=== PATIENT | male | born 1940 | race Caucasian/White ===

== ENCOUNTER 2023-04-05 15:29 | Inpatient (IN) | payer MEDICARE, OTHER ==
[2023-04-05] MEDS ORDERED: Ketorolac Tromethamine 30 MG/ML VIAL ONE (15:56)
[2023-04-05 16:29] LABS: #Eosinphils 0.1 thou/uL (0.0-0.7); #Monocytes 0.5 thou/uL (0.11-0.59); #Neutrophils 5.2 thou/uL (1.40-6.50); %Basophils 0.4 % (0.0-1.0); %Eosinophils 1.6 % (0.0-10.0); %Lymphocytes 19.4 % (21.0-51.0); %Monocytes 6.7 % (0.0-10.0); %Neutrophils 71.2 % (42.0-75.0); Hematocrit 35.3 % (42.0-52.0); Hemoglobin 11.7 g/dL (14.0-18.0); Mean Corpuscular HGB CONC 33.1 g/dL (32.0-36.0); Mean Corpuscular Hemoglobin 32.3 pg (27.0-31.0); Mean Corpuscular Volume 97.5 fl (78.0-98.0); Mean Platelet Volume 11.1 fL (7.4-10.4); Platelet Count 156 10x3/uL (130-400); RBC Distribution Width 12.9 % (11.5-14.5); Red Blood Cell (RBC) Count 3.62 mill/uL (4.70-6.10); White Blood Cell (WBC) Count 7.3 10x3/uL (4.8-10.8)
[2023-04-05 16:43] LABS: PTT 31.2 sec (22.9-36.1); Prothrombin Time 13.7 sec (12.0-14.7)
[2023-04-05 16:56] LABS: ALT (SGPT) 15 U/L (8-55); AST (SGOT) 19 U/L (5-34); Albumin 4.5 g/dL (3.4-4.8); Alkaline Phosphatase 84 U/L (40-110); Anion Gap 16 mmol/L (10-20); BUN (Urea Nitrogen) 25 mg/dL (8.4-25.7); Bilirubin, Total 0.5 mg/dL (0.2-1.2); Calc. Creatinine Clearance 0 mL/min (70-130); Calcium 10.3 mg/dL (7.8-10.44); Carbon Dioxide 19 mmol/L (23-31); Chloride 109 mmol/L (98-107); Estimated GFR 38; Globulin 2.7 g/dL (2.4-3.5); Glucose 157 mg/dL (83-110); Potassium 4.7 mmol/L (3.5-5.1); Protein, Total 7.2 g/dL (5.8-8.1); Sodium 139 mmol/L (136-145)
[2023-04-05] MEDS ORDERED: Morphine 2 MG/ML VIAL SLOW IVP PRN (17:15)
[2023-04-05] MEDS ORDERED: Dextrose 5% in Water 1,000 ML IV PRN (17:15)
[2023-04-05] MEDS ORDERED: Ipratropium/Albuterol 3 ML NEB NEB PRN (17:15)
[2023-04-05] MEDS ORDERED: Dextrose 50% Abboject 50 ML SYRINGE SLOW IVP PRN (17:15)
[2023-04-05] MEDS ORDERED: TETANUS, DIPHTHERIA TOX,ADULT (TDVAX) 0.5 ML VIAL IM ONE (17:15)
[2023-04-05] MEDS ORDERED: Ondansetron ODT 4 MG TAB PO PRN (17:15)
[2023-04-05] MEDS ORDERED: Glucagon 1 MG/ML KIT IM PRN (17:15)
[2023-04-05 17:52] LABS: Troponin I Less than 0.010 ng/mL (< 0.028)
[2023-04-05 17:55] LABS: Bacteria/HPF None Seen HPF (None Seen); Bilirubin Negative (Negative); Blood, Urine Negative (Negative); CAUTI Indications for Culture Alt mental st,lethar; Clarity Clear (Clear); Glucose, Urine (Dipstick) Normal (Negative); Ketone, Urine Negative (Negative); Leukocyte Negative Leu/uL (Negative); Nitrite Negative (Negative); Protein, Urine (Dipstick) 30 mg/dL (Neg-Trace); RBC/HPF 0-3 HPF (0-3); Specific Gravity, Urine 1.014 (1.002-1.036); Squamous Epithelial None Seen HPF (0-3); Urobilinogen Normal mg/dL (Less than 2); WBC/HPF None Seen HPF (0-3)
[2023-04-05 17:59] LABS: Urine Culture Reflex No No
[2023-04-05] MEDS ORDERED: Acetaminophen 325 MG TAB ONE (18:10)
[2023-04-05 19:58] VITALS: BMI 33.5
[2023-04-05] MEDS: Acetaminophen 325 MG TAB PO SCH (21:24)
[2023-04-05] MEDS: Sodium Chloride 0.9% 1,000 ML IV SCH (21:27)
[2023-04-05] MEDS: traMADol HCl 50 MG TAB PO PRN (21:29)
[2023-04-06] MEDS: Acetaminophen 325 MG TAB PO SCH ×4 (03:05→17:55)
[2023-04-06] MEDS: traMADol HCl 50 MG TAB PO PRN ×3 (03:48→17:56)
[2023-04-06] MEDS: hydrALAZINE 20 MG/ML VIAL SLOW IVP PRN ×3 (03:49→23:47)
[2023-04-06 04:55] LABS: #Eosinphils 0.1 thou/uL (0.0-0.7); #Monocytes 0.7 thou/uL (0.11-0.59); #Neutrophils 5.3 thou/uL (1.40-6.50); %Basophils 0.1 % (0.0-1.0); %Eosinophils 1.4 % (0.0-10.0); %Lymphocytes 19.5 % (21.0-51.0); %Neutrophils 69.7 % (42.0-75.0); Hematocrit 30.7 % (42.0-52.0); Hemoglobin 10.5 g/dL (14.0-18.0); Mean Corpuscular HGB CONC 34.2 g/dL (32.0-36.0); Mean Corpuscular Hemoglobin 32.5 pg (27.0-31.0); Mean Platelet Volume 11.7 fL (7.4-10.4); Platelet Count 161 10x3/uL (130-400); RBC Distribution Width 12.7 % (11.5-14.5); Red Blood Cell (RBC) Count 3.23 mill/uL (4.70-6.10); White Blood Cell (WBC) Count 7.6 10x3/uL (4.8-10.8)
[2023-04-06] MEDS: Sodium Chloride 0.9% 1,000 ML IV SCH ×3 (04:57→23:47)
[2023-04-06 05:24] LABS: Anion Gap 13 mmol/L (10-20); BUN (Urea Nitrogen) 22 mg/dL (8.4-25.7); Calc. Creatinine Clearance 58 mL/min (70-130); Carbon Dioxide 20 mmol/L (23-31); Chloride 108 mmol/L (98-107); Estimated GFR 44; Glucose 163 mg/dL (83-110); Potassium 4.1 mmol/L (3.5-5.1); Sodium 137 mmol/L (136-145)
[2023-04-06] MEDS ORDERED: Flecainide Acetate 100 MG TAB PO SCH (06:00)
[2023-04-06] MEDS ORDERED: Amlodipine 5 mg/Benazepril 20 mg CAP PO SCH (06:00)
[2023-04-06] MEDS: Famotidine 20 MG TAB PO SCH (08:34)
[2023-04-06] MEDS: Insulin Glargine 30 UNITS/0.3 ML VIAL SC SCH (08:34)
[2023-04-06] MEDS: Senokot S 8.6-50 MG TAB PO SCH ×2 (08:35→20:41)
[2023-04-06] MEDS ORDERED: FLU VACC QS2023(65UP)/MF59C/PF 60 MCG/0.5 ML SYRINGE IM ONE (09:00)
[2023-04-06] MEDS ORDERED: CEFAZOLIN 2 GM in Sodium Chloride 0.9% 100 ML IVPB SCH (15:15)
[2023-04-06] MEDS: Flecainide Acetate 100 MG TAB PO SCH (20:41)
[2023-04-06] MEDS ORDERED: hydrALAZINE 20 MG/ML VIAL SLOW IVP SCH (21:00)
[2023-04-07] MEDS: Acetaminophen 325 MG TAB PO SCH ×5 (00:15→23:48)
[2023-04-07] MEDS: hydrALAZINE 20 MG/ML VIAL SLOW IVP PRN (04:42)
[2023-04-07] MEDS ORDERED: Sodium Chloride 0.9% 100 ML ONE (07:45)
[2023-04-07] MEDS ORDERED: CEFAZOLIN 2 GM VIAL ONE (07:45)
[2023-04-07] MEDS ORDERED: HYDROcodone/Acetaminophen 10/325 mg Tablet PO PRN (08:09)
[2023-04-07] MEDS ORDERED: Morphine 4 MG/ML VIAL SLOW IVP PRN (08:09)
[2023-04-07] MEDS ORDERED: Ondansetron PF 4 MG/2 ML Vial IVP PRN (08:09)
[2023-04-07] MEDS ORDERED: Morphine 2 MG/ML VIAL SLOW IVP PRN (08:09)
[2023-04-07] MEDS ORDERED: PROPOFOL 20 ML ONE (08:12)
[2023-04-07] MEDS ORDERED: Lidocaine 1% PF 5 ML VIAL ONE ×2 (08:12→08:21)
[2023-04-07] MEDS ORDERED: Rocuronium Bromide 10 MG/ML (10ML VIAL) ONE ×2 (08:12→08:21)
[2023-04-07] MEDS ORDERED: Communication Order-Pharmacy FS SCH (08:15)
[2023-04-07] MEDS ORDERED: Ondansetron PF 4 MG/2 ML Vial ONE ×2 (08:21→09:17)
[2023-04-07] MEDS ORDERED: ePHEDrine Sulfate 50 MG/10 ML VIAL ONE ×2 (08:21→09:17)
[2023-04-07] MEDS ORDERED: PROPOFOL 200 MG/20 ML VIAL ONE (08:21)
[2023-04-07] MEDS ORDERED: SUGAMMADEX SODIUM 200 MG/2 ML VIAL ONE (09:22)
[2023-04-07] MEDS ORDERED: Promethazine HCl 25 MG/ML VIAL IM PRN (09:42)
[2023-04-07] MEDS ORDERED: Ondansetron HCl/PF 4 MG/2 ML Vial IVP PRN (09:42)
[2023-04-07] MEDS: Senokot S 8.6-50 MG TAB PO SCH ×2 (10:05→20:25)
[2023-04-07] MEDS: Flecainide Acetate 100 MG TAB PO SCH ×2 (10:24→20:26)
[2023-04-07] MEDS: Famotidine 20 MG TAB PO SCH (10:24)
[2023-04-07] MEDS: Amlodipine 5 mg/Benazepril 20 mg CAP PO SCH (10:24)
[2023-04-07] MEDS: Insulin Glargine 30 UNITS/0.3 ML VIAL SC SCH (10:25)
[2023-04-07] MEDS: Insulin Regular 300 UNITS/3 ML VIAL SC PRN ×2 (13:11→16:34)
[2023-04-07] MEDS: traMADol HCl 50 MG TAB PO PRN (15:02)
[2023-04-07] MEDS: CEFAZOLIN 2 GM in Sodium Chloride 0.9% 100 ML IVPB SCH ×2 (15:19→23:50)
[2023-04-07] MEDS: Sodium Chloride 0.9% 1,000 ML IV SCH (15:49)
[2023-04-08] MEDS: Sodium Chloride 0.9% 1,000 ML IV SCH ×2 (04:49→20:37)
[2023-04-08] MEDS: Acetaminophen 325 MG TAB PO SCH ×4 (04:49→23:16)
[2023-04-08 04:58] LABS: #Eosinphils 0.1 thou/uL (0.0-0.7); #Neutrophils 4.7 thou/uL (1.40-6.50); %Basophils 0.3 % (0.0-1.0); %Eosinophils 1.9 % (0.0-10.0); %Lymphocytes 20.6 % (21.0-51.0); %Neutrophils 62.9 % (42.0-75.0); Hematocrit 26.8 % (42.0-52.0); Hemoglobin 8.9 g/dL (14.0-18.0); Mean Corpuscular HGB CONC 33.2 g/dL (32.0-36.0); Mean Corpuscular Hemoglobin 32.4 pg (27.0-31.0); Mean Corpuscular Volume 97.5 fl (78.0-98.0); Mean Platelet Volume 11.3 fL (7.4-10.4); Platelet Count 161 10x3/uL (130-400); RBC Distribution Width 13.5 % (11.5-14.5); Red Blood Cell (RBC) Count 2.75 mill/uL (4.70-6.10); White Blood Cell (WBC) Count 7.4 10x3/uL (4.8-10.8)
[2023-04-08 06:00] LABS: ALT (SGPT) 13 U/L (8-55); AST (SGOT) 34 U/L (5-34); Albumin 3.5 g/dL (3.4-4.8); Alkaline Phosphatase 72 U/L (40-110); Anion Gap 14 mmol/L (10-20); BUN (Urea Nitrogen) 25 mg/dL (8.4-25.7); Bilirubin, Total 0.5 mg/dL (0.2-1.2); Calc. Creatinine Clearance 51 mL/min (70-130); Calcium 8.4 mg/dL (7.8-10.44); Carbon Dioxide 20 mmol/L (23-31); Chloride 107 mmol/L (98-107); Estimated GFR 38; Globulin 2.2 g/dL (2.4-3.5); Glucose 167 mg/dL (83-110); Potassium 3.7 mmol/L (3.5-5.1); Protein, Total 5.7 g/dL (5.8-8.1); Sodium 137 mmol/L (136-145)
[2023-04-08] MEDS: Flecainide Acetate 100 MG TAB PO SCH ×2 (08:05→20:38)
[2023-04-08] MEDS: Amlodipine 5 mg/Benazepril 20 mg CAP PO SCH ×2 (08:06→08:07)
[2023-04-08] MEDS: Famotidine 20 MG TAB PO SCH (08:06)
[2023-04-08] MEDS: Insulin Glargine 30 UNITS/0.3 ML VIAL SC SCH (08:07)
[2023-04-08] MEDS: Insulin Regular 300 UNITS/3 ML VIAL SC PRN ×2 (08:07→17:49)
[2023-04-08] MEDS: Senokot S 8.6-50 MG TAB PO SCH ×2 (08:11→20:38)
[2023-04-08] MEDS ORDERED: Flecainide Acetate 100 MG TAB PO SCH (09:00)
[2023-04-08] MEDS ORDERED: Amlodipine 5 mg/Benazepril 20 mg CAP PO SCH (09:00)
[2023-04-08] MEDS ORDERED: Labetalol HCl 100 MG/20 ML VIAL SLOW IVP PRN (09:14)
[2023-04-08] MEDS: traMADol HCl 50 MG TAB PO PRN ×2 (09:48→17:47)
[2023-04-08] MEDS: Apixaban 2.5 MG TAB PO SCH (20:38)
[2023-04-08] MEDS: hydrALAZINE 20 MG/ML VIAL SLOW IVP PRN (23:19)
[2023-04-09 05:03] LABS: Anion Gap 12 mmol/L (10-20); BUN (Urea Nitrogen) 27 mg/dL (8.4-25.7); Calc. Creatinine Clearance 54 mL/min (70-130); Calcium 8.3 mg/dL (7.8-10.44); Carbon Dioxide 20 mmol/L (23-31); Chloride 108 mmol/L (98-107); Estimated GFR 41; Glucose 138 mg/dL (83-110); Potassium 3.9 mmol/L (3.5-5.1); Sodium 136 mmol/L (136-145)
[2023-04-09] MEDS: Acetaminophen 325 MG TAB PO SCH ×4 (05:45→23:29)
[2023-04-09] MEDS: Sodium Chloride 0.9% 1,000 ML IV SCH (05:45)
[2023-04-09] MEDS: Flecainide Acetate 100 MG TAB PO SCH ×2 (08:18→20:46)
[2023-04-09] MEDS: Apixaban 2.5 MG TAB PO SCH ×2 (08:18→20:46)
[2023-04-09] MEDS: Amlodipine 5 mg/Benazepril 20 mg CAP PO SCH (08:19)
[2023-04-09] MEDS: Famotidine 20 MG TAB PO SCH (08:19)
[2023-04-09] MEDS: Senokot S 8.6-50 MG TAB PO SCH ×3 (08:19→20:50)
[2023-04-09] MEDS: Insulin Glargine 30 UNITS/0.3 ML VIAL SC SCH (08:19)
[2023-04-09] MEDS ORDERED: Furosemide 40 MG/4 ML VIAL SLOW IVP SCH (09:00)
[2023-04-09] MEDS ORDERED: Amlodipine 5 MG TAB PO SCH ×2 (09:00→13:14)
[2023-04-09] MEDS: Insulin Regular 300 UNITS/3 ML VIAL SC PRN ×2 (11:35→20:46)
[2023-04-09] MEDS: hydrALAZINE 20 MG/ML VIAL SLOW IVP PRN (20:45)
[2023-04-10 05:22] LABS: Anion Gap 13 mmol/L (10-20); BUN (Urea Nitrogen) 30 mg/dL (8.4-25.7); Calc. Creatinine Clearance 52 mL/min (70-130); Calcium 8.7 mg/dL (7.8-10.44); Carbon Dioxide 20 mmol/L (23-31); Chloride 106 mmol/L (98-107); Estimated GFR 38; Glucose 140 mg/dL (83-110); Magnesium 1.9 mg/dL (1.6-2.6); Potassium 3.4 mmol/L (3.5-5.1); Sodium 136 mmol/L (136-145)
[2023-04-10] MEDS: Acetaminophen 325 MG TAB PO SCH ×2 (05:25→11:38)
[2023-04-10] MEDS: hydrALAZINE 20 MG/ML VIAL SLOW IVP PRN (05:25)
[2023-04-10] MEDS: Insulin Regular 300 UNITS/3 ML VIAL SC PRN ×2 (06:23→11:40)
[2023-04-10] MEDS ORDERED: Potassium Chloride 20 MEQ TAB PO SCH (08:00)
[2023-04-10] MEDS: Senokot S 8.6-50 MG TAB PO SCH (08:39)
[2023-04-10] MEDS: Famotidine 20 MG TAB PO SCH (08:40)
[2023-04-10] MEDS: Insulin Glargine 30 UNITS/0.3 ML VIAL SC SCH (08:44)
[2023-04-10] MEDS: Apixaban 2.5 MG TAB PO SCH (08:44)
[2023-04-10] MEDS: Flecainide Acetate 100 MG TAB PO SCH (08:46)
[2023-04-10] MEDS ORDERED: Metoprolol Tartrate 25 MG TAB PO SCH (09:00)
[2023-04-10] MEDS ORDERED: Atorvastatin Calcium 20 MG TAB PO SCH ×2 (09:00)
[2023-04-10] MEDS ORDERED: Amlodipine 5 mg/Benazepril 20 mg CAP PO SCH (09:00)
[2023-04-10 11:16] VITALS: TEMP 98.3
[2023-04-10 12:07] VITALS: BP 158/68
== END 2023-04-10 15:10 | DRG 522 ==
LOC: ERS 15:29 → 2NO 17:23
PROVIDERS: ADMIT Student in an Organized Health Care Education/Training Program; ATTEND Student in an Organized Health Care Education/Training Program
PROC: 0SRS0JZ Replacement of Left Hip Joint, Femoral Surface with Synthetic Substitute, Open Approach (ICD-10-PCS; principal; 2023-04-07)
PROC: 5A09357 Assistance with Respiratory Ventilation, Less than 24 Consecutive Hours, Continuous Positive Airway Pressure (ICD-10-PCS; 2023-04-08)
DX: S72.002A Fracture of unspecified part of neck of left femur, initial encounter for closed fracture (principal); I10 Essential (primary) hypertension; W19.XXXA Unspecified fall, initial encounter; E11.9 Type 2 diabetes mellitus without complications; I44.0 Atrioventricular block, first degree; I45.10 Unspecified right bundle-branch block; I48.0 Paroxysmal atrial fibrillation; G47.33 Obstructive sleep apnea (adult) (pediatric); Z85.46 Personal history of malignant neoplasm of prostate; Z90.49 Acquired absence of other specified parts of digestive tract; Z87.891 Personal history of nicotine dependence; Z88.8 Allergy status to other drugs, medicaments and biological substances; Z79.01 Long term (current) use of anticoagulants; Y92.000 Kitchen of unspecified non-institutional (private) residence as the place of occurrence of the external cause
CPT/HCPCS: 36415; 36416; 70450; 71045; 72125; 72170; 80048; 80053; 81001; 83605; 83735; 84100; 84484; 85025; 85610; 85730; 86850; 86900; 86901; 90714; 93005; 93306; 93880; 96374; C1889; G0390; J0360; J1815; J1885; J1940; J2405; J2704; J3490; J7050